=== PATIENT | male | born 1965 | race African-American/Black ===

== ENCOUNTER 2018-12-23 07:44 | Day surgery (SDC) | payer OTHER ==
[2018-12-23] MEDS ORDERED: EPINEPHrine 1 MG/ML 30 ML INJ (08:58)
[2018-12-23 09:08] LABS: INR 1.27; PT RATIO 1.3
[2018-12-23] MEDS ORDERED: NEOSTIGMINE 3 MG/3 ML SYRINGE (09:13)
[2018-12-23] MEDS ORDERED: CEFAZOLIN 1 GM INJ (09:13)
[2018-12-23] MEDS ORDERED: GLYCOPYRROLATE 0.4 MG INJ (09:13)
[2018-12-23] MEDS ORDERED: PROPOFOL 20 ML (09:13)
[2018-12-23] MEDS ORDERED: ROCURONIUM 50 MG INJ (09:13)
[2018-12-23] MEDS ORDERED: ONDANSETRON 4 MG INJ (09:14)
[2018-12-23] MEDS ORDERED: DEXAMETHASONE 4 MG/ML 5 ML INJ (09:14)
[2018-12-23] MEDS ORDERED: FENTAnyl 50 MCG/ML VIAL (09:14)
[2018-12-23] MEDS ORDERED: MIDAZOLAM 1 MG/ML 2 ML INJ (09:14)
[2018-12-23] MEDS ORDERED: OXYCODONE/ACETAMINOPHEN (5/325) TAB PO (09:30)
[2018-12-23] MEDS ORDERED: IPRATROPIUM (NEB) 0.5 MG/2.5 ML AMP HHN (09:30)
[2018-12-23] MEDS ORDERED: ALBUTEROL 0.083% (NEB) 2.5 MG/3 ML AMP HHN (09:30)
[2018-12-23] MEDS ORDERED: TRIMETHOBENZAMIDE 100 MG/ML VIAL IM (09:30)
[2018-12-23] MEDS ORDERED: MIDAZOLAM 1 MG/ML 2 ML INJ IV (09:30)
[2018-12-23] MEDS ORDERED: DIPHENHYDRAMINE 50 MG INJ IV (09:30)
[2018-12-23] MEDS ORDERED: HYDROmorphONE 1 MG/5 ML IV SYRINGE IV ×2 (09:30)
[2018-12-23] MEDS ORDERED: FENTAnyl 50 MCG/ML VIAL IV ×3 (09:30)
[2018-12-23] MEDS ORDERED: MEPERIDINE 25 MG INJ IV (09:30)
[2018-12-23] MEDS ORDERED: EPHEDrine 25 MG/5 ML SYG IV (09:30)
[2018-12-23] MEDS ORDERED: hydrALAzine 20 MG INJ IV (09:30)
[2018-12-23] MEDS ORDERED: ONDANSETRON 4 MG INJ IV (09:30)
[2018-12-23] MEDS ORDERED: LABETALOL HCL 20MG INJ IV (09:30)
[2018-12-23] MEDS ORDERED: LABETALOL HCL 20MG INJ (09:44)
[2018-12-23] MEDS: morphine SULFATE/PF (10 MG/10 ML) INJ (10:02)
[2018-12-23] MEDS ORDERED: hydrALAzine 20 MG INJ (10:27)
[2018-12-23] MEDS ORDERED: HYDROCODONE/APAP (5/325) TAB PO (10:30)
[2018-12-23 10:42] LABS: PARTIAL THROMBOPLASTIN TIME 41.1 Sec (23.0-35.0)
[2018-12-23] MEDS: HYDROmorphONE 1 MG/5 ML IV SYRINGE IV (10:55)
[2018-12-23] MEDS: OXYCODONE/ACETAMINOPHEN (5/325) TAB PO (12:23)
== END 2018-12-23 12:15 | disposition home or self-care (01) ==
LOC: SDS 07:44
DX: M25.462 Effusion, left knee (principal); I10 Essential (primary) hypertension
CPT/HCPCS: 29870; 85610; 85730; 87070; 87075; 87102; 87116